=== PATIENT | male | born 1985 | race Caucasian/White ===

== ENCOUNTER 2017-02-06 21:24 | Emergency (ER) | payer SELFPAY ==
[~2017-02-06] VITALS: Ht 177.8 cm; Wt 71.5 kg
[~2017-02-06 21:24] MED LIST: IBUP800T23 PO
[2017-02-06 21:53] VITALS: BP 118/80; PULSE 84; RESP 18; TEMP 97.9; O2SAT 99
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
[2017-02-06] MEDS ORDERED: CIPR500T2 PO ×2 (22:17→22:36)
[2017-02-06] MEDS ORDERED: ULTR50TA5 PO (22:17)
[2017-02-06] MEDS ORDERED: IBUP800T23 PO (22:30)
[2017-02-06] MEDS ORDERED: TRAM50TA PO (22:36)
== END 2017-02-06 22:50 | disposition home or self-care (01) ==
LOC: PHED 21:24
DX: K04.7 Periapical abscess without sinus (principal)
CPT/HCPCS: 99284

== ENCOUNTER 2017-03-16 14:03 | Emergency (ER) | payer SELFPAY ==
[~2017-03-16 14:03] MED LIST changes: +CIPR500T2 PO; +TRAM50TA PO
== END 2017-03-16 14:45 | disposition left against medical advice (07) ==
LOC: PHED 14:03
DX: R11.10 Vomiting, unspecified (principal)
CPT/HCPCS: 99281

== ENCOUNTER 2017-03-18 18:19 | Emergency (ER) | payer SELFPAY ==
[~2017-03-18] VITALS: Ht 177.8 cm; Wt 69.0 kg
[2017-03-18 18:26] VITALS: BP 111/64; PULSE 91; RESP 16; TEMP 98.1; O2SAT 98
--- NOTE | 2017-03-18 19:45 | PD ---
HPI Chief Complaint: Musculoskeletal Complaint Time Seen by Provider: 19:00 Travel History International Travel<30 days: No Contact w/Intl Traveler<30days: No Traveled to known affect area: No History of Present Illness HPI 31-year-old male presents to the emergency room for evaluation of right-sided rib pain for the past week. Patient states he tripped in a parking lot while running and fell forward landing on his chest. No other injuries. States that at first he had worsening pain with breathing and coughing but that has subsided. Patient has not taken anything for his symptoms. 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 Denies cough, shortness of breath, fever, chills, nausea, vomiting. No chronic medical conditions or daily medications. History Past Medical Histgory Tetanus Vaccination: Unknown Hx Cancer: No Social History Alcohol Use: No Tobacco Use: Yes (1 PPD) Allergies-Medications (Allergen,Severity, Reaction): Coded Allergies: penicillin G (Unverified Allergy, Intermediate, HIVES, 03/17/17) Reported Meds & Prescriptions Reported Meds & Active Scripts Active Review of Systems Except as stated in HPI: all other systems reviewed are Neg Physical Exam Narrative GENERAL: Well-nourished, well-developed male in no acute distress. Afebrile. Ambulatory. SKIN: Focused skin assessment warm/dry. HEAD: Normocephalic. EYES: No scleral icterus. No injection or drainage. NECK: Supple, trachea midline. No JVD or lymphadenopathy. CARDIOVASCULAR: Regular rate and rhythm without murmurs, gallops, or rubs. RESPIRATORY: Breath sounds equal bilaterally. No accessory muscle use. CHEST: No tenderness to palpation. No deformity or crepitus. No retractions or use of accessory muscles. Data Data Last Documented VS Vital Signs Date Time Temp Pulse Resp B/P Pulse Ox O2 Delivery O2 Flow Rate FiO2 03/18/17 19:11 20 03/18/17 18:26 98.1 91 111/64 98 Room Air MDM Medical Screen Exam Complete: Yes Emergency Medical Condition: No Differential Diagnosis Rib contusion Narrative Course 31-year-old male presents to the emergency room for evaluation of right-sided rib pain after falling 1 week ago. Patient had delayed onset of pain. He has not taken anything for pain. There is very little tenderness to palpation of the costochondral joint. No crepitus. Lung sounds clear and equal bilaterally. Vital signs stable. Patient has no increased work of breathing. Moves on the bed without difficulty. No erythema, ecchymosis, or obvious deformity. He is requesting a work note. There are no urgent or emergent medical conditions this time. A medical screening exam was performed: At the time of evaluation the presenting medical condition was determined not to be of an emergent nature. The patient was given the option of receiving additional care, but declined. Patient was given options for additional community resources from which to obtain care. The Patient Has Been advised to seek medical attention for their presenting complaint. The patient has been advised to return to the ER at any time if an emergent condition develops. Primary Impression: Encounter for medical screening examination Disposition: 01 DISCHARGE HOME Condition: Stable Chelsea Nair Mar 18, 2017 19:45
== END 2017-03-18 19:21 | disposition left against medical advice (07) ==
LOC: PHED 18:19 → PHEFT 19:21
DX: R07.81 Pleurodynia (principal); F17.200 Nicotine dependence, unspecified, uncomplicated; W01.0XXA Fall on same level from slipping, tripping and stumbling without subsequent striking against object, initial encounter; Y93.02 Activity, running; Y92.481 Parking lot as the place of occurrence of the external cause
CPT/HCPCS: 99281